=== PATIENT | female | born 1990 | race Caucasian/White ===

== ENCOUNTER 2019-03-29 12:51 | Emergency (ER) | payer SELFPAY ==
[~2019-03-29 12:51] MED LIST: AZIT250T89 PO/NG; IBUP200T49 PO; OXYC-302 PO; PREN1TAB60 PO
--- NOTE | 2019-03-29 13:17 | NUR ---
not in lobby at this time
--- NOTE | 2019-03-29 13:24 | NUR ---
pt not in lobby at this time
--- NOTE | 2019-03-29 13:32 | NUR ---
pt not in lobby at this time, assumed [facility]
[2019-03-29] MEDS ORDERED: PROPOFOL 0 ML IV ONE (16:49)
[2019-03-30] MEDS ORDERED: NALOXONE 1 MG/ML, 2ML ONE (01:04)
== END 2019-03-29 13:33 | disposition left against medical advice (07) ==
LOC: ED 13:31
DX: R51 Headache (principal); Z53.21 Procedure and treatment not carried out due to patient leaving prior to being seen by health care provider